=== PATIENT | male | born 2000 | race Caucasian/White ===

== ENCOUNTER 2020-05-06 22:06 | Emergency (ER) | payer SELFPAY ==
[~2020-05-06] VITALS: Ht 170.2 cm; Wt 72.0 kg
[2020-05-06 22:38] VITALS: BP 142/79
[2020-05-06] MEDS ORDERED: HYDROCODONE/ACETAMINOPHEN 5/325MG TABLET PO STA (23:35)
[2020-05-07] MEDS ORDERED: BACITRACIN ZINC OINT UDPKT TOP NR (01:15)
== END 2020-05-07 01:59 | disposition home or self-care (01) ==
LOC: ER 22:06
DX: S62.616A Displaced fracture of proximal phalanx of right little finger, initial encounter for closed fracture (principal); S00.83XA Contusion of other part of head, initial encounter; V18.4XXA Pedal cycle driver injured in noncollision transport accident in traffic accident, initial encounter; Y93.89 Activity, other specified; Y92.488 Other paved roadways as the place of occurrence of the external cause
CPT/HCPCS: 70486; 73110; 73130; 99285